=== PATIENT | female | born 1995 | race Caucasian/White ===

== ENCOUNTER 2018-07-20 21:02 | Emergency (ER) | payer SELFPAY ==
--- OUTSIDE RECORDS SUMMARY | 2018-07-20 21:04 | XMS REPORT | Clinical Summary ---
:1995 Author Organization [facility] Address [address] [place] [address] Care Team Providers Name Role Phone Asked, No Pcp Primary Care Provider Unavailable Allergies Active Allergy Reactions Severity Noted Date Comments Hydrogen Peroxide Other (See Comments) 08/20/2017 Medications Medication Sig Dispensed Refills Start Date End Date Status ibuprofen Take 800 mg by 0 Active (ADVIL,MOTRIN) 200 MG mouth daily. tablet clindamycin (CLEOCIN) Take 1 capsule 21 capsule 0 08/20/2017 08/27/2017 300 MG capsule (300 mg total) by mouth 3 (three) times a day for 7 days. chlorhexidine Apply 15 mL to 900 mL 0 08/20/2017 09/19/2017 (PERIDEX) 0.12 % the mouth or solution throat 2 (two) times a day for 30 days. acetaminophen-codeine Take 1-2 10 tablet 0 08/20/2017 08/25/2017 (TYLENOL WITH CODEINE tablets by #3) 300-30 mg per mouth every 6 tablet (six) hours as needed for moderate pain for up to 5 days. etodolac (LODINE) 500 Take 1 tablet 20 tablet 0 08/20/2017 08/30/2017 MG tablet (500 mg total) by mouth 2 (two) times a day as needed (pain) for up to 10 days. ondansetron ODT Take 1 tablet 6 tablet 0 08/20/2017 09/19/2017 (ZOFRAN ODT) 4 MG (4 mg total) by disintegrating tablet mouth every 8 (eight) hours as needed for nausea or vomiting for up to 30 days. Active Problems Not on file Encounters Date Type Specialty Care Team Description 08/20/2017 Emergency Emergency Medicine Bryan Lester Dental infection ( Primary Dx); DO Maxime Dental abscess after 07/19/2017 Social History Tobacco Use Types Packs/Day Years Used Date Current Every Day Smoker Cigarettes 1 Smokeless Tobacco: Never Used Alcohol Use Drinks/Week oz/Week Comments Yes once every 2 months Sex Assigned at Date Recorded Not on file Job Start Date Occupation Industry Not on file Not on file Not on file Travel History Travel Start Travel End No recent travel history available. Last Filed Vital Signs Vital Sign Reading Time Taken Blood Pressure 125/59 08/20/2017 10:24 PM CDT Pulse 89 08/20/2017 10:24 PM CDT Temperature 37.2 C (98.9 F) 08/20/2017 10:24 PM CDT Respiratory Rate 18 08/20/2017 10:24 PM CDT Oxygen Saturation 97% 08/20/2017 10:24 PM CDT Inhaled Oxygen Concentration - - Weight 81.6 kg (180 lb) 08/20/2017 8:10 PM CDT Height 176.5 cm (5' 9.5") 08/20/2017 8:10 PM CDT Body Mass Index 26.2 08/20/2017 8:10 PM CDT Plan of Treatment Not on file Results Not on fileafter 07/19/2017 Advance Directives Patient has advance care planning documents on file. For more information, please contact:Sanjeev Moe[address] [place] [address]
[2018-07-20] MEDS ORDERED: AZITHROMYCIN 1 GM PACKET ONE (22:40)
[2018-07-20] MEDS ORDERED: DOXYCYCLINE 100 MG CAP PO ONE (22:40)
[2018-07-20] MEDS ORDERED: CEFTRIAXONE 250 MG/VIAL ONE (22:40)
[2018-07-20] MEDS ORDERED: WATER FOR INJ,STERILE 10 ML ONE (22:41)
--- NOTE | 2018-07-20 22:47 | EDPHYS ---
Physician Documentation [facility] Name: Tana Robertson Age: 22 yrs Sex: Female : 1995 Arrival Date: 07/20/2018 Time: 21:05 Bed 19 Private MD: ED Physician Tyler Garcia HPI: 07/20 21:35 This 22 yrs old Female presents to ER via Ambulatory with complaints of jr8 Vaginal Pain. 21:35 Onset: The symptoms/episode began/occurred acutely, yesterday. Modifying factors: The jr8 symptoms are alleviated by nothing, the symptoms are aggravated by nothing. Associated signs and symptoms: The patient has no apparent associated signs or symptoms. Severity of symptoms: At their worst the symptoms were moderate, in the emergency department the symptoms are unchanged. It is unknown whether or not the patient has had similar symptoms in the past. The patient has not recently seen a physician. Patient stated that she has history of herpes. Just finished menstrual cycle and started to have vaginal pain. Started her viral medication but not getting better. Stated that she looked down there with mirror and saw red area with discharge . 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 - Social history:: Smoking status: Patient uses tobacco products, smokes one pack cigarettes per day. - Ebola Screening: : Patient denies travel to an Ebola-affected area in the 21 days before illness onset. ROS: 21:57 Eyes: Negative for injury, pain, redness, and discharge, ENT: Negative for injury, jr8 pain, and discharge, Neck: Negative for injury, pain, and swelling, Cardiovascular: Negative for chest pain, palpitations, and edema, Respiratory: Negative for shortness of breath, cough, wheezing, and pleuritic chest pain, Abdomen/GI: Negative for abdominal pain, nausea, vomiting, diarrhea, and constipation, Back: Negative for injury and pain, MS/Extremity: Negative for injury and deformity, Skin: Negative for injury, rash, and discoloration, Neuro: Negative for headache, weakness, numbness, tingling, and seizure. 21:57 : Positive for Vaginal pain with lesions. Exam: 22:39 Eyes: Pupils equal round and reactive to light, extra-ocular motions intact. Lids and jr8 lashes normal. Conjunctiva and sclera are non-icteric and not injected. Cornea within normal limits. Periorbital areas with no swelling, redness, or edema. ENT: Nares patent. No nasal discharge, no septal abnormalities noted. Tympanic membranes are normal and external auditory canals are clear. Oropharynx with no redness, swelling, or masses, exudates, or evidence of obstruction, uvula midline. Mucous membranes moist. Neck: Trachea midline, no thyromegaly or masses palpated, and no cervical lymphadenopathy. Supple, full range of motion without nuchal rigidity, or vertebral point tenderness. No Meningismus. Cardiovascular: Regular rate and rhythm with a normal S1 and S2. No gallops, murmurs, or rubs. Normal PMI, no JVD. No pulse deficits. Respiratory: Lungs have equal breath sounds bilaterally, clear to auscultation and percussion. No rales, rhonchi or wheezes noted. No increased work of breathing, no retractions or nasal flaring. Abdomen/GI: Soft, non-tender, with normal bowel sounds. No distension or tympany. No guarding or rebound. No evidence of tenderness throughout. Back: No spinal tenderness. No costovertebral tenderness. Full range of motion. Skin: Warm, dry with normal turgor. Normal color with no rashes, no lesions, and no evidence of cellulitis. MS/ Extremity: Pulses equal, no cyanosis. Neurovascular intact. Full, normal range of motion. Neuro: Awake and alert, GCS 15, oriented to person, place, time, and situation. Cranial nerves II-XII grossly intact. Motor strength 5/5 in all extremities. Sensory grossly intact. Cerebellar exam normal. Normal gait. 22:39 : Pelvic Exam: External exam: no appreciated Bartholin's cyst, no erythema, not excoriated, no evidence of foreign body, no lesions, no ulcerations, no warts seen, Speculum exam: no cervicitis, os that is closed, discharge, white, the nurse was present for the exam, Cyst/Abscess noted to vaginal opening 12 o'clock position with purulent drainage . Vital Signs: 21:12 BP 135 / 89; Pulse 103; Resp 18; Temp 98.2; Pulse Ox 99% ; Height 5 ft. 9 in. (175.26 aj1 cm) (R); Pain 3/10; 22:15 BP 129 / 86; Pulse 91; Resp 17; Pulse Ox 100% on R/A; Pain 3/10; ed1 MDM: 21:15 Patient medically screened. jr8 22:41 Data reviewed: vital signs, nurses notes, lab test result(s). Data interpreted: Pulse jr8 oximetry: on room air is 99 %. Interpretation: normal. Counseling: I had a detailed discussion with the patient and/or guardian regarding: the historical points, exam findings, and any diagnostic results supporting the discharge/admit diagnosis, lab results, the need for outpatient follow up, an OB/Gyne specialist, to return to the emergency department if symptoms worsen or persist or if there are any questions or concerns that arise at home. ED course: Discussed with patient that because it is draining now and where the abscess/cyst is. Would be better suited to be seen by gynecologic surgeon. Will start on antibiotics for now. If worse to come back . 07/20 22:21 Order name: GC (GONORR/CHLAMYDIA) Probe ed1 07/20 22:21 Order name: Wet Prep; Complete Time: 22:43 ed1 07/20 22:22 Order name: Wound Culture ed1 07/20 21:25 Order name: Pelvic Exam Setup; Complete Time: 21:25 jr8 Administered Medications: 22:38 Drug: Doxycycline 100 mg Route: PO; ed1 22:57 Follow up: Response: No adverse reaction ed1 22:39 Drug: Rocephin (cefTRIAXone) 250 mg Route: IM; Site: right ventrogluteal; ed1 22:57 Follow up: Response: No adverse reaction ed1 22:39 Drug: Zithromax 1 grams Route: PO; ed1 22:58 Follow up: Response: No adverse reaction ed1 22:58 Drug: Flagyl 2 grams Route: PO; ed1 22:58 Follow up: Response: Medication administered at discharge. ed1 Disposition: 07/20/18 22:46 Discharged to Home. Impression: Trichomoniasis, Vaginal Abscess . - Condition is Stable. - Discharge Instructions: Trichomoniasis, Percutaneous Abscess Drain. - Prescriptions for Doxycycline Monohydrate 100 mg Oral Tablet - take 1 tablet by ORAL route every 12 hours for 14 days; 28 tablet. - Medication Reconciliation Form, Thank You Letter, Antibiotic Education, Prescription Opioid Use form. - Follow up: Private Physician; When: 2 - 3 days; Reason: Recheck today's complaints, Continuance of care, Re-evaluation by your physician. - Problem is new. - Symptoms have improved. Addendum: 07/23/2018 11:13 Co-signature as Attending Physician, Tyler Garcia MD I agree with the assessment and c cuevas plan of care. Signatures: Dispatcher [employer] EDMS Madison Alvarez RN RN aj1 Tyler Garcia MD MD cha Riggs, Erika, RN RN ed1 Keron Tan PA PA jr8 Corrections: (The following items were deleted from the chart) 07/20 23:28 22:46 07/20/2018 22:46 Discharged to Home. Impression: Trichomoniasis; Vaginal Abscess ed1 . Condition is Stable. Forms are Medication Reconciliation Form, Thank You Letter, Antibiotic Education, Prescription Opioid Use. Follow up: Private Physician; When: 2 - 3 days; Reason: Recheck today's complaints, Continuance of care, Re-evaluation by your physician. Problem is new. Symptoms have improved. jr8
--- NOTE | 2018-07-20 22:47 | ER ---
Nurse's Notes [facility] Name: Tana Robertson Age: 22 yrs Sex: Female : 1995 Arrival Date: 07/20/2018 Time: 21:05 Bed 19 Private MD: Diagnosis: Trichomoniasis;Vaginal Abscess Presentation: 07/20 21:09 Presenting complaint: Patient states: "My period ended a couple days ago and then I aj1 started having tenderness down there. I do have herpes so I thought I was having an outbreak so I started taking my meds. Today I looked down there with a mirror and it doesn't look like any of my previous outbreaks I noticed like a big swollen red area and it popped and all of this green and white pus came out, then I noticed a bunch of other red bumps". Transition of care: patient was not received from another setting of care. Onset of symptoms was July 20, 2018. Risk Assessment: Do you want to hurt yourself or someone else? Patient reports no desire to harm self or others. Initial Sepsis Screen: Does the patient meet any 2 criteria? No. Patient's initial sepsis screen is negative. Does the patient have a suspected source of infection? No. Patient's initial sepsis screen is negative. Care prior to arrival: None. 21:09 Method Of Arrival: Ambulatory aj1 21:09 Acuity: BEL 3 aj1 Triage Assessment: 21:12 General: Appears in no apparent distress. Behavior is calm, cooperative, appropriate aj1 for age. Pain: Complains of pain in pelvis Pain currently is 3 out of 10 on a pain scale. Neuro: Level of Consciousness is awake, alert, obeys commands. Cardiovascular: Patient's skin is warm and dry. Respiratory: Airway is patent Respiratory effort is even, unlabored, Respiratory pattern is regular, symmetrical. 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 - Social history:: Smoking status: Patient uses tobacco products, smokes one pack cigarettes per day. - Ebola Screening: : Patient denies travel to an Ebola-affected area in the 21 days before illness onset. Screenin:12 Abuse screen: Denies threats or abuse. Denies injuries from another. Nutritional ed1 screening: No deficits noted. Tuberculosis screening: No symptoms or risk factors identified. Fall Risk None identified. Assessment: 21:12 General: Appears in no apparent distress. Behavior is calm, cooperative. Pain: ed1 Complains of pain in vaginal opening Pain currently is 3 out of 10 on a pain scale. Quality of pain is described as aching, Pain began 1 day ago. Neuro: Level of Consciousness is awake, alert, obeys commands, Oriented to person, place, time, situation. Cardiovascular: Denies chest pain, Heart tones S1 S2 present. Respiratory: Airway is patent Respiratory effort is even, unlabored, Respiratory pattern is regular, symmetrical, Breath sounds are clear bilaterally. GI: Abdomen is non-distended, Bowel sounds present X 4 quads. Abd is soft and non tender X 4 quads. Patient currently denies diarrhea, nausea, vomiting. : Reports discharge, from vagina that is malodorous, white, vaginal itching. EENT: No signs and/or symptoms were reported regarding the EENT system. Derm: Skin is intact, is healthy with good turgor, Skin is dry, Skin is normal, Skin temperature is warm. Musculoskeletal: Circulation, motion, and sensation intact. Range of motion: intact in all extremities. 22:15 Reassessment: Patient appears in no apparent distress at this time. No changes from ed1 previously documented assessment. Patient and/or family updated on plan of care and expected duration. Pain level reassessed. Patient is alert/active/playful, equal unlabored respirations, skin warm/dry/pink. Patient states symptoms have not improved. Vital Signs: 21:12 BP 135 / 89; Pulse 103; Resp 18; Temp 98.2; Pulse Ox 99% ; Height 5 ft. 9 in. (175.26 aj1 cm) (R); Pain 3/10; 22:15 BP 129 / 86; Pulse 91; Resp 17; Pulse Ox 100% on R/A; Pain 3/10; ed1 ED Course: 21:05 Patient arrived in ED. mr 21:11 Triage completed. aj1 21:12 Arm band placed on Patient placed in an exam room. aj1 21:12 Patient has correct armband on for positive identification. Placed in gown. Bed in low ed1 position. Call light in reach. Side rails up X 1. Adult w/ patient. Pulse ox on. NIBP on. Warm blanket given. 21:15 Keron Tan PA is PHCP. jr8 21:15 Tyler Garcia MD is Attending Physician. jr8 21:17 Glo Guido, RN is Primary Nurse. ed1 22:20 Assist provider with pelvic exam: Set up pelvic tray. Performed by Keron SINGER ed1 Specimens sent to lab. Patient tolerated well. 22:59 Patient did not have IV access during this emergency room visit. ed1 Administered Medications: 22:38 Drug: Doxycycline 100 mg Route: PO; ed1 22:57 Follow up: Response: No adverse reaction ed1 22:39 Drug: Rocephin (cefTRIAXone) 250 mg Route: IM; Site: right ventrogluteal; ed1 22:57 Follow up: Response: No adverse reaction ed1 22:39 Drug: Zithromax 1 grams Route: PO; ed1 22:58 Follow up: Response: No adverse reaction ed1 22:58 Drug: Flagyl 2 grams Route: PO; ed1 22:58 Follow up: Response: Medication administered at discharge. ed1 Outcome: 22:46 Discharge ordered by . jr8 22:59 Discharged to home ambulatory, with family. ed1 22:59 Condition: good 22:59 Discharge instructions given to patient, Instructed on discharge instructions, follow up and referral plans. medication usage, Demonstrated understanding of instructions, follow-up care, medications, Prescriptions given X 1. 23:28 Patient left the ED. ed1 Signatures: Madison Alvarez, RN RN aj1 Desiree Crowder mr Glo Guido, RN RN ed1 Keron Tan PA PA jrTrudy
[2018-07-20] MEDS ORDERED: metroNIDAZOLE 500 MG TABLET ONE (23:01)
[2018-07-24 06:42] LABS: C.trachomatis RNA,TMA Not Detected (Not Detected)
== END 2018-07-20 23:28 | disposition home or self-care (01) ==
LOC: ER 21:02
DX: A59.9 Trichomoniasis, unspecified (principal); N76.0 Acute vaginitis; F17.210 Nicotine dependence, cigarettes, uncomplicated; Z88.8 Allergy status to other drugs, medicaments and biological substances
CPT/HCPCS: 87070; 87205; 87210; 87490; 87590; 96372; 99284; J0696

== ENCOUNTER 2018-10-14 15:35 | Emergency (ER) | payer SELFPAY ==
--- OUTSIDE RECORDS SUMMARY | 2018-10-14 15:56 | XMS REPORT | Clinical Summary ---
:1995 Author Organization [facility] Address [address] [place] [address] Care Team Providers Name Role Phone Asked, No Pcp Primary Care Provider Unavailable Allergies Active Allergy Reactions Severity Noted Date Comments Hydrogen Peroxide Other (See Comments) 08/20/2017 Medications Medication Sig Dispensed Refills Start Date End Date Status ibuprofen Take 800 mg by 0 Active (ADVIL,MOTRIN) 200 MG mouth daily. tablet Active Problems Not on file Social History Tobacco Use Types Packs/Day Years [...] travel history available. Last Filed Vital Signs Not on file Plan of Treatment Not on file Results Not on fileafter 10/13/2017 Advance Directives Patient has advance care planning documents on file. For more information, please contact:[facility] [place] [address]
[2018-10-14] MEDS ORDERED: LIDOCAINE 1% 20 ML MDV ONE (16:35)
[2018-10-14] MEDS ORDERED: CLINDAMYCIN IV 150 MG/ML (4 mL) VIAL ONE (17:27)
[2018-10-14] MEDS ORDERED: SMZ./TMP. 800/160 MG TABLET ONE (17:27)
--- NOTE | 2018-10-14 17:54 | EDPHYS ---
Physician Documentation [facility] Name: Tana Robertson Age: 22 yrs Sex: Female : 1995 Arrival Date: 10/14/2018 Time: 15:37 Bed 15 Private MD: ED Physician Tyler Garcia HPI: 10/14 16:59 This 22 yrs old Female presents to ER via Ambulatory with complaints of Skin jr8 Sore(s). 16:59 The patient presents with an abscess of the left axilla, The patient presents with jr8 cellulitis of the left arm. Description: The affected area is moderate sized, erythematous, swollen, tense, warm. Onset: The symptoms/episode began/occurred gradually, 2 day(s) ago. Possible cause(s): unknown. Associated signs and symptoms: The patient has no apparent associated signs or symptoms. Modifying factors: the symptoms are alleviated by nothing, the symptoms are aggravated by pressure, sitting, squeezing the lesion and expressing the contents, touching. Severity of symptoms: At their worst the symptoms were moderate, in the emergency department the symptoms are unchanged. The patient has not experienced similar symptoms in the past. The patient has not recently seen a physician. 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 - Social history:: Smoking status: Patient uses tobacco products, smokes one pack cigarettes per day. - Ebola Screening: : No symptoms or risks identified at this time. ROS: 16:59 Eyes: Negative for injury, pain, redness, and discharge, ENT: Negative for injury, jr8 pain, and discharge, Neck: Negative for injury, pain, and swelling, Cardiovascular: Negative for chest pain, palpitations, and edema, Respiratory: Negative for shortness of breath, cough, wheezing, and pleuritic chest pain, Abdomen/GI: Negative for abdominal pain, nausea, vomiting, diarrhea, and constipation, Back: Negative for injury and pain, MS/Extremity: Negative for injury and deformity, Neuro: Negative for headache, weakness, numbness, tingling, and seizure. 16:59 Skin: Positive for abscess, cellulitis, erythema. Exam: 16:59 Eyes: Pupils equal round and reactive to light, extra-ocular motions intact. Lids and jr8 lashes normal. Conjunctiva and sclera are non-icteric and not injected. Cornea within normal limits. Periorbital areas with no swelling, redness, or edema. ENT: Nares patent. No nasal discharge, no septal abnormalities noted. Tympanic membranes are normal and external auditory canals are clear. Oropharynx with no redness, swelling, or masses, exudates, or evidence of obstruction, uvula midline. Mucous membranes moist. Neck: Trachea midline, no thyromegaly or masses palpated, and no cervical lymphadenopathy. Supple, full range of motion without nuchal rigidity, or vertebral point tenderness. No Meningismus. Cardiovascular: Regular rate and rhythm with a normal S1 and S2. No gallops, murmurs, or rubs. Normal PMI, no JVD. No pulse deficits. Respiratory: Lungs have equal breath sounds bilaterally, clear to auscultation and percussion. No rales, rhonchi or wheezes noted. No increased work of breathing, no retractions or nasal flaring. Abdomen/GI: Soft, non-tender, with normal bowel sounds. No distension or tympany. No guarding or rebound. No evidence of tenderness throughout. Back: No spinal tenderness. No costovertebral tenderness. Full range of motion. MS/ Extremity: Pulses equal, no cyanosis. Neurovascular intact. Full, normal range of motion. Neuro: Awake and alert, GCS 15, oriented to person, place, time, and situation. Cranial nerves II-XII grossly intact. Motor strength 5/5 in all extremities. Sensory grossly intact. Cerebellar exam normal. Normal gait. 16:59 Chest/axilla: Axilla: abscess, that is moderate in size, of the left axilla, that is approximately 4 cm(s), with pointing, with tenderness. 16:59 Skin: 4 cm by 4 cm well demarcated area of redness with induration noted to left biceps region noted without induration . Vital Signs: 15:42 BP 126 / 69; Pulse 96; Resp 16 S; Temp 98.3(O); Pulse Ox 100% on R/A; Weight 96.16 kg; hj Height 5 ft. 10 in. (177.80 cm); Pain 5/10; 16:57 BP 125 / 66; Pulse 90; Resp 18; Pulse Ox 100% on R/A; hj 17:27 BP 122 / 68; Pulse 92; Resp 18; Pulse Ox 99% on R/A; hj 15:42 Body Mass Index 30.42 (96.16 kg, 177.80 cm) Procedures: 16:59 I \T\ D: Incision and drainage was performed for an abscess of the left axilla. Prepped jr8 with Betadine, Anesthetized with 3 ml's 1% Lidocaine. Incised with #11 blade. Drained moderate amount purulent fluid. bloody fluid. Loculations removed. Cultures obtained. Abscess cavity explored. Packed with iodoform gauze, Dressing: sterile 4x4 gauze, the patient tolerated the procedure well. MDM: 15:47 Patient medically screened. [facility] 17:04 Data reviewed: vital signs, nurses notes, and as a result, I will discharge patient. [facility] Data interpreted: Pulse oximetry: on room air is 100 %. Interpretation: normal. Counseling: I had a detailed discussion with the patient and/or guardian regarding: the historical points, exam findings, and any diagnostic results supporting the discharge/admit diagnosis, the need for outpatient follow up, a family practitioner, to return to the emergency department if symptoms worsen or persist or if there are any questions or concerns that arise at home. Administered Medications: 16:32 Drug: Lidocaine (1 %) 5 mg Route: Infiltration; 17:29 Follow up: Response: No adverse reaction 17:06 Drug: Clindamycin 600 mg Route: IM; Site: right gluteus; 17:28 Follow up: Response: No adverse reaction 17:06 Drug: Bactrim (160 mg-800 mg (DS) 1 tablet Route: PO; hj 17:28 Follow up: Response: No adverse reaction Disposition: 10/15 10:09 Co-signature as Attending Physician, Tyler Garcia MD I agree with the assessment and jayshree plan of care. Disposition: 10/14/18 17:05 Discharged to Home. Impression: Cutaneous abscess of left axilla, Cellulitis of left upper limb. - Condition is Stable. - Discharge Instructions: Skin Abscess, Cellulitis, Adult, Incision and Drainage. - Prescriptions for Clindamycin HCl 300 mg Oral Capsule - take 1 capsule by ORAL route every 6 hours for 10 days; 40 capsule. Ibuprofen 800 mg Oral Tablet - take 1 tablet by ORAL route every 12 hours As needed take with food; 20 tablet. Bactrim DS 800- 160 mg Oral Tablet - take 1 tablet by ORAL route every 12 hours for 10 days; 20 tablet. - Medication Reconciliation Form, Thank You Letter, Antibiotic Education, Prescription Opioid Use form. - Follow up: Private Physician; When: 48 Hours; Reason: Wound Recheck, Recheck today's complaints, Continuance of care, Re-evaluation by your physician. - Problem is new. - Symptoms have improved. Signatures: Tyler Garcia MD MD cha Calderon, Audri, RN RN aa5 Keron Tan PA PA jr8 Eliel Moreno RN RN Corrections: (The following items were deleted from the chart) 10/14 15:42 15:42 Immunization history: Adult Immunizations up to date, 5 aa5 15:42 15:42 Immunization history: Last tetanus immunization: unknown, aa5 aa5 17:29 17:05 10/14/2018 17:05 Discharged to Home. Impression: Cutaneous abscess of left hj axilla; Cellulitis of left upper limb. Condition is Stable. Forms are Medication Reconciliation Form, Thank You Letter, Antibiotic Education, Prescription Opioid Use. Follow up: Private Physician; When: 48 Hours; Reason: Wound Recheck, Recheck today's complaints, Continuance of care, Re-evaluation by your physician. Problem is new. Symptoms have improved. jr8
--- NOTE | 2018-10-14 17:54 | ER ---
Nurse's Notes [facility] Name: Tana Robertson Age: 22 yrs Sex: Female : 1995 Arrival Date: 10/14/2018 Time: 15:37 Bed 15 Private MD: Diagnosis: Cutaneous abscess of left axilla;Cellulitis of left upper limb Presentation: 10/14 15:40 Presenting complaint: Patient states: "[place] to the beach and the day after I started aa5 getting this sores on my left arm". Red area noted to left upper arm and abscess noted to left axillae. Transition of care: patient was not received from another setting of care. Onset of symptoms was September 2018. Risk Assessment: Do you want to hurt yourself or someone else? Patient reports no desire to harm self or others. Initial Sepsis Screen: Does the patient meet any 2 criteria? No. Patient's initial sepsis screen is negative. Does the patient have a suspected source of infection? No. Patient's initial sepsis screen is negative. Care prior to arrival: None. 15:40 Acuity: BEL 4 aa5 15:40 Method Of Arrival: Ambulatory aa5 Triage Assessment: 15:47 General: Appears in no apparent distress. uncomfortable, Behavior is calm, cooperative, hj appropriate for age. Pain: Denies pain. 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 - Social history:: Smoking status: Patient uses tobacco products, smokes one pack cigarettes per day. - Ebola Screening: : No symptoms or risks identified at this time. Screenin:46 Abuse screen: Denies threats or abuse. Denies injuries from another. Nutritional hj screening: No deficits noted. Tuberculosis screening: No symptoms or risk factors identified. Fall Risk None identified. Assessment: 15:46 General: Appears in no apparent distress. uncomfortable, Behavior is calm, cooperative, hj appropriate for age. Pain: Complains of pain in L axilla. Neuro: Level of Consciousness is awake, alert, obeys commands, Oriented to person, place, time, situation, Appropriate for age. Cardiovascular: Capillary refill < 3 seconds Patient's skin is warm and dry. Respiratory: Airway is patent Respiratory effort is even, unlabored, Respiratory pattern is regular, symmetrical. GI: No signs and/or symptoms were reported involving the gastrointestinal system. : No signs and/or symptoms were reported regarding the genitourinary system. EENT: No signs and/or symptoms were reported regarding the EENT system. Derm: Reports rash on L upper arm. Musculoskeletal: Reports LN in L axilla. 16:32 Reassessment: Patient and/or family updated on plan of care and expected duration. Pain hj level reassessed. Patient is alert, oriented x 3, equal unlabored respirations, skin warm/dry/pink. provider in room for I\\T\\D;. Vital Signs: 15:42 BP 126 / 69; Pulse 96; Resp 16 S; Temp 98.3(O); Pulse Ox 100% on R/A; Weight 96.16 kg; hj Height 5 ft. 10 in. (177.80 cm); Pain 5/10; 16:57 BP 125 / 66; Pulse 90; Resp 18; Pulse Ox 100% on R/A; hj 17:27 BP 122 / 68; Pulse 92; Resp 18; Pulse Ox 99% on R/A; hj 15:42 Body Mass Index 30.42 (96.16 kg, 177.80 cm) ED Course: 15:37 Patient arrived in ED. mr 15:40 Arm band placed on. aa5 15:41 Triage completed. aa5 15:41 Eliel Moreno RN is Primary Nurse. hj 15:47 Keron Tan PA is PHCP. jr8 15:47 Tyler Garcia MD is Attending Physician. jr8 15:47 Patient has correct armband on for positive identification. Bed in low position. Call hj light in reach. Side rails up X 1. Adult w/ patient. 17:27 No provider procedures requiring assistance completed. Patient did not have IV access hj during this emergency room visit. Administered Medications: 16:32 Drug: Lidocaine (1 %) 5 mg Route: Infiltration; hj 17:29 Follow up: Response: No adverse reaction hj 17:06 Drug: Clindamycin 600 mg Route: IM; Site: right gluteus; hj 17:28 Follow up: Response: No adverse reaction 17:06 Drug: Bactrim (160 mg-800 mg (DS) 1 tablet Route: PO; hj 17:28 Follow up: Response: No adverse reaction Outcome: 17:05 Discharge ordered by MD. perez 17:27 Discharged to home ambulatory. hj 17:27 Condition: stable 17:27 Discharge instructions given to patient, Instructed on discharge instructions, follow up and referral plans. medication usage, Demonstrated understanding of instructions, follow-up care, medications, Prescriptions given X 3. 17:29 Patient left the ED. Signatures: Desiree Crowder mr WestonEle, RN RN aa5 Keron Tan PA PA jr8 Eliel Moreno RN RN hj Corrections: (The following items were deleted from the chart) 15:42 15:42 Immunization history: Adult Immunizations up to date, aa5 aa5 15:42 15:42 Immunization history: Last tetanus immunization: unknown, aa5 aa5 15:43 15:42 BP 126 / 69; aa5 aa5 15:45 15:42 BP 126 / 69; Pulse 96bpm; Resp 16bpm; Spontaneous; Pulse Ox 100% RA; Temp 98.3F hj Oral; Pain 5/10; aa5
== END 2018-10-14 17:29 | disposition home or self-care (01) ==
LOC: ER 15:35
PROC: 0J9F0ZZ Drainage of Left Upper Arm Subcutaneous Tissue and Fascia, Open Approach (ICD-10-PCS; principal; 2018-10-14)
DX: L03.112 Cellulitis of left axilla (principal); F17.210 Nicotine dependence, cigarettes, uncomplicated; Z88.8 Allergy status to other drugs, medicaments and biological substances
CPT/HCPCS: 96372; 99283; S0077

== ENCOUNTER 2019-05-31 18:07 | Emergency (ER) | payer SELFPAY ==
[2019-05-31] MEDS ORDERED: NA CHLORIDE 0.9% 1,000 ML ONE (19:28)
[2019-05-31] MEDS ORDERED: MORPHINE 2 MG/ML SYR ONE (19:28)
[2019-05-31] MEDS ORDERED: ONDANSETRON 4 MG/2 ML VIAL ONE (19:28)
[2019-05-31 19:29] LABS: Absolute Lymphocytes (CBC) 1.5 K/uL (0.7-4.9); Basophils % 0.6 % (0-1.3); Hematocrit 40.2 % (36.0-45.0); Lymphocytes % 24.2 % (15.3-44.8); MPV 9.3 fL (7.6-11.3); RBC Red Blood Cell Count 4.42 M/uL (3.86-4.86)
[2019-05-31 19:50] LABS: Protime INR 1.19
[2019-05-31 19:57] LABS: BUN Blood Urea Nitrogen 6 mg/dL (7-18); Bicarbonate 27 mmol/L (21-32); Glucose Level 100 mg/dL (74-106); Potassium 3.3 mmol/L (3.5-5.1); Sodium Level 137 mmol/L (136-145)
[2019-05-31 20:12] LABS: Urine Blood 1+ (NEG); Urine Glucose NEGATIVE (NEG); Urine Protein TRACE (NEG); Urine Specific Gravity >1.030 (1.005-1.030)
[2019-05-31] MEDS ORDERED: CLINDAMYCIN 900MG/D5W 900 MG/50 ML IVPB IV ONE (20:22)
--- NOTE | 2019-05-31 20:22 | RAD REPORT ---
EXAM DESCRIPTION: CT - Soft Tissue Neck W/Contr CLINICAL HISTORY: right lower jaw swelling Pain and swelling. COMPARISON: No comparisons TECHNIQUE All CT scans are performed using dose optimization technique as appropriate and may includ e automated exposure control or mA/KV adjustment according to patient size. FINDINGS: Moderate perimandibular inflammatory changes are present along the right aspect of the man dible. [place] fluid collection measuring 19 x 5 mm is present adjacent to the right mandibular ramus likely representing odontogenic abscess. The first and second right mandibular molars demonstrate 5 m m periapical abscesses as well as large dental ami. Inflammatory changes extend into the right submandibular region with enlarged right submandibular lym ph nodes present. Mild fluid is seen extending into the right floor of the mouth. No intrinsic neck mass is seen. Thyroid gland is normal size. Mild left frontoethmoidal sinus thicken ing. IMPRESSION: Right perimandibular inflammatory changes are present along with a 19 x 5 mm odontogenic abscess. Several enlarged right submandibular lymph nodes are seen with inflammatory fluid extending to the floor of the mouth on the right.
[2019-05-31] MEDS ORDERED: NICOTINE 14 MG/PAT TD ONE (21:12)
--- NOTE | 2019-05-31 21:35 | ER ---
Nurse's Notes [facility] Name: Tana Robertson Age: 23 yrs Sex: Female : 1995 Arrival Date: 05/31/2019 Time: 18:14 Bed 8 Private MD: Diagnosis: Dental caries;Periapical abscess without sinus-right lower jaw;Right lower jaw odotogenic abscess Presentation: 05/31 18:25 Presenting complaint: Patient states: She has 2 bad teeth on the right side and today aj1 she started having pain and swelling to the right jaw. Transition of care: patient was not received from another setting of care. Onset of symptoms was May 31, 2019. Risk Assessment: Do you want to hurt yourself or someone else? Patient reports no desire to harm self or others. Initial Sepsis Screen: Does the patient meet any 2 criteria? No. Patient's initial sepsis screen is negative. Does the patient have a suspected source of infection? Yes: Other: dental carries. Care prior to arrival: None. 18:25 Method Of Arrival: Ambulatory aj 18:25 Acuity: BEL 3 aj1 Triage Assessment: 18:26 General: Appears in no apparent distress. uncomfortable, Behavior is calm, cooperative, aj1 appropriate for age. Pain: Pain currently is 3 out of 10 on a pain scale. Neuro: Level of Consciousness is awake, alert, obeys commands. Cardiovascular: Patient's skin is warm and dry. Respiratory: Airway is patent Respiratory effort is even, unlabored, Respiratory pattern is regular, symmetrical. 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 - Coronavirus screen:: The patient has NOT traveled to [place], [place], or [place] in the past 14 days. - Social history:: Smoking status: Patient reports the use of cigarette tobacco products, smokes one-half pack cigarettes per day. - Ebola Screening: : Patient denies travel to an Ebola-affected area in the 21 days before illness onset. Screenin:48 Abuse screen: Denies threats or abuse. Nutritional screening: No deficits noted. tw2 Tuberculosis screening: No symptoms or risk factors identified. Fall Risk None identified. Assessment: 19:10 General: Appears in no apparent distress. comfortable, Behavior is calm, cooperative, aa1 appropriate for age. Pain: Complains of pain in face and mouth Pain began suddenly, 1 day ago. Is continuous. Neuro: Level of Consciousness is awake, alert, obeys commands, Oriented to person, place, time, situation, Moves all extremities. Full function Speech is normal. Respiratory: Airway is patent Respiratory effort is even, unlabored, Respiratory pattern is regular, symmetrical. GI: No signs and/or symptoms were reported involving the gastrointestinal system. : No signs and/or symptoms were reported regarding the genitourinary system. EENT: Poor dentition noted. multiple broken or missing teeth. Derm: Skin is intact, is healthy with good turgor, Skin is pink, warm \T\ dry. Musculoskeletal: Capillary refill < 3 seconds, Swelling present in right cheek and right jaw. 20:15 Reassessment: Patient appears in no apparent distress at this time. Patient and/or aa1 family updated on plan of care and expected duration. Pain level reassessed. Patient is alert, oriented x 3, equal unlabored respirations, skin warm/dry/pink. Awaiting CT results. 21:10 Reassessment: Patient appears in no apparent distress at this time. Patient and/or aa1 family updated on plan of care and expected duration. Pain level reassessed. Patient is alert, oriented x 3, equal unlabored respirations, skin warm/dry/pink. Pt requesting nicotine patch; provider notified. 21:38 Reassessment: Report given to Carmella Burton RN at [facility]. aa1 22:03 Reassessment: Patient appears in no apparent distress at this time. Patient is alert, aa1 oriented x 3, equal unlabored respirations, skin warm/dry/pink. EMS present for transfer to [facility] Patient states feeling better. Vital Signs: 18:26 BP 118 / 85; Pulse 99; Resp 18; Temp 98.5; Pulse Ox 98% on R/A; Height 5 ft. 9 in. aj1 (175.26 cm) (R); Pain 3/10; 19:30 BP 106 / 70; Pulse 92; Resp 18; Pulse Ox 100% on R/A; aa1 20:30 BP 109 / 83; Pulse 92; Resp 16; Temp 98.7; Pulse Ox 98% on R/A; Pain 0/10; aa1 21:39 BP 117 / 81; Pulse 86; Resp 18; Temp 98.6; Pulse Ox 100% on R/A; Pain 0/10; aa1 ED Course: 18:14 Patient arrived in ED. as 18:25 Triage completed. aj1 18:26 Arm band placed on Patient placed in an exam room. aj1 18:27 Bed in low position. Call light in reach. tw2 18:38 Tyler Villagran PA is PHCP. cp 18:38 Maxime Wisdom MD is Attending Physician. cp 18:57 Radiology exam delayed due to lab results not completed at this time. (BUN/Creatinine). ag6 19:12 Tyler Garcia MD is Attending Physician. cp 19:20 Warm blanket given. aa1 19:20 Initial lab(s) drawn, by me, sent to lab. Inserted saline lock: 20 gauge in right aa1 antecubital area, using aseptic technique. Blood collected. 19:36 Theresa Goodwin, RN is Primary Nurse. aa1 20:10 CT Soft Tissue Neck W/contr In Process Unspecified. EDMS 22:03 No provider procedures requiring assistance completed. Patient transferred, IV remains aa1 in place. Administered Medications: 19:25 Drug: NS 0.9% 1000 ml Route: IV; Rate: 1 bolus; Site: right antecubital; aa1 20:25 Follow up: IV Status: Completed infusion; IV Intake: 1000ml aa1 19:25 Drug: Zofran 4 mg Route: IVP; Site: right antecubital; aa1 20:25 Follow up: Response: No adverse reaction; Marked relief of symptoms aa1 19:27 Drug: morphine 2 mg Route: IVP; Site: right antecubital; aa1 20:27 Follow up: Response: No adverse reaction; Pain is decreased aa1 20:15 Drug: Clindamycin 900 mg Route: IVPB; Infused Over: 30 mins; Site: right antecubital; aa1 20:45 Follow up: IV Status: Completed infusion; IV Intake: 50ml aa1 21:25 Drug: Nicotine 14 mg/24 hr 1 patches Route: Transdermal; Site: affected area; aa1 Intake: 20:25 IV: 1000ml; Total: 1000ml. aa1 20:45 IV: 50ml; Total: 1050ml. aa1 Outcome: 21:30 ER care complete, transfer ordered by MD. bauer 22:03 Transferred by ground EMS to [facility], Transfer form aa1 completed. 22:03 Condition: good 22:03 Discharge instructions given to patient, Instructed on the need for transfer, Demonstrated understanding of instructions. 22:04 Patient left the ED. aa1 Signatures: Dispatcher [employer] EDMS Madison Alvarez RN RN aj1 Theresa Goodwin RN RN aa1 Echo Simms Corey, PA PA cp Wise, Tara, RN RN tw2 Orly Onofre ag6 Corrections: (The following items were deleted from the chart) 20:47 19:30 BP 109 / 83; Pulse 92bpm; Resp 16bpm; Pulse Ox 98% RA; Temp 98.7F; Pain 0/10; aa1 aa1
--- NOTE | 2019-05-31 21:36 | EDPHYS ---
Physician Documentation [facility] Name: Tana Robertson Age: 23 yrs Sex: Female : 1995 Arrival Date: 05/31/2019 Time: 18:14 Bed 8 Private MD: ED Physician Tyler Garcia HPI: 05/31 19:00 This 23 yrs old Female presents to ER via Ambulatory with complaints of cp Facial Swelling, Abscess. 19:00 The patient presents with pain, swelling. The problem is located in the right lower jaw.cp 19:00 Onset: The symptoms/episode began/occurred this morning. Duration: The symptoms are cp continuous, and are steadily getting worse. Associated signs and symptoms: Pertinent positives: pain, Pertinent negatives: dysphagia, fever, inability to eat. 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 - Coronavirus screen:: The patient has NOT traveled to [place], [place], or [place] in the past 14 days. - Social history:: Smoking status: Patient reports the use of cigarette tobacco products, smokes one-half pack cigarettes per day. - Ebola Screening: : Patient denies travel to an Ebola-affected area in the 21 days before illness onset. ROS: 19:05 Constitutional: Negative for body aches, chills, fever. cp 19:05 Eyes: Negative for injury, pain, redness, and discharge. cp 19:05 ENT: Positive for dental pain, Teeth pain right lower jaw swelling. 19:05 Cardiovascular: Negative for chest pain. 19:05 Respiratory: Negative for cough, shortness of breath, wheezing. 19:05 Abdomen/GI: Negative for abdominal pain, vomiting, diarrhea, constipation. 19:05 Skin: Negative for rash. 19:05 Neuro: Negative for altered mental status, headache, weakness. 19:05 All other systems are negative. Exam: 19:10 Constitutional: The patient appears in no acute distress, alert, awake, non-toxic, well cp developed, well nourished, uncomfortable. 19:10 Head/face: Noted is swelling, that is moderate, of the right jaw, tenderness, that is cp severe, of the right jaw. 19:10 Eyes: Periorbital structures: appear normal, Conjunctiva: normal, no exudate, no injection, Sclera: no appreciated abnormality, Lids and lashes: appear normal, bilaterally. 19:10 ENT: External ear(s): are unremarkable, Ear canal(s): are normal, clear, TM's: bulging, is not appreciated, bilaterally, dullness, bilaterally, erythema, is not appreciated, bilaterally, Nose: is normal, Mouth: Lips: moist, Oral mucosa: pink and intact, moist, Tongue: is normal, drooling, is not appreciated, Posterior pharynx: Airway: no evidence of obstruction, patent, Dental exam: dental caries, that is severe, diffusely, fractured teeth are noted, specifically the lower right first molar (#30), gum swelling, that is moderate, pain, that is severe, specifically in the lower right first molar (#30), lower right second molar (#31) and lower right third molar (#32), Voice: is hoarse. 19:10 Neck: ROM/movement: is normal, is supple, no meningismus, no nuchal rigidity. 19:10 Chest/axilla: Inspection: normal, Palpation: is normal, no crepitus, no tenderness. 19:10 Cardiovascular: Rate: normal, Rhythm: regular. 19:10 Respiratory: the patient does not display signs of respiratory distress, Respirations: normal, no use of accessory muscles, labored breathing, is not present, Breath sounds: are clear throughout, no decreased breath sounds, no stridor, no wheezing. 19:10 Abdomen/GI: Exam negative for discomfort, distension, guarding, Inspection: abdomen appears normal. 19:10 Skin: no rash present. 19:10 Neuro: Orientation: to person, place \T\ time. Mentation: is normal, Cerebellar function: is grossly normal, Motor: moves all fours, strength is normal, Sensation: is normal. Vital Signs: 18:26 BP 118 / 85; Pulse 99; Resp 18; Temp 98.5; Pulse Ox 98% on R/A; Height 5 ft. 9 in. aj1 (175.26 cm) (R); Pain 3/10; 19:30 BP 106 / 70; Pulse 92; Resp 18; Pulse Ox 100% on R/A; aa1 20:30 BP 109 / 83; Pulse 92; Resp 16; Temp 98.7; Pulse Ox 98% on R/A; Pain 0/10; aa1 21:39 BP 117 / 81; Pulse 86; Resp 18; Temp 98.6; Pulse Ox 100% on R/A; Pain 0/10; aa1 MDM: 18:51 Patient medically screened. cp 19:00 Differential diagnosis: dental caries, dental abscess, pericoronitis, cp gingivostomatitis, sepsis. 21:30 Physician consultation: was contacted at 21:25, regarding regarding transfer, to [facility]. cp patient's condition, DR Vanessa Barba. 21:31 Data reviewed: vital signs, nurses notes, lab test result(s), radiologic studies, CT cp scan, I have discussed the patient's presentation/case with the attending Emergency Department Physician;. Counseling: I had a detailed discussion with the patient and/or guardian regarding: the historical points, exam findings, and any diagnostic results supporting the discharge/admit diagnosis, lab results, radiology results, the need to transfer to another facility, [facility] does not immediately have the required specialist. Response to treatment: the patient's symptoms have mildly improved after treatment. 05/31 18:54 Order name: CBC with Diff; Complete Time: 20:03 cp 05/31 18:54 Order name: BMP; Complete Time: 20:03 cp 05/31 18:54 Order name: PT-INR; Complete Time: 20:03 cp 05/31 18:54 Order name: CT Soft Tissue Neck W/contr; Complete Time: 20:38 cp 05/31 20:10 Order name: Urine Dipstick--Ancillary (enter results); Complete Time: 20:38 sp 05/31 20:10 Order name: Urine --Ancillary (enter results); Complete Time: 20:38 sp 05/31 18:54 Order name: Urine Dipstick-Ancillary (obtain specimen); Complete Time: 20:08 cp 05/31 18:54 Order name: Urine Test (obtain specimen); Complete Time: 19:36 cp 05/31 18:54 Order name: IV; Complete Time: 19:36 cp 05/31 21:25 Order name: NPO; Complete Time: 21:32 cp Administered Medications: 19: Drug: NS 0.9% 1000 ml Route: IV; Rate: 1 bolus; Site: right antecubital; aa1 20:25 Follow up: IV Status: Completed infusion; IV Intake: 1000ml aa1 : Drug: Zofran 4 mg Route: IVP; Site: right antecubital; aa1 20:25 Follow up: Response: No adverse reaction; Marked relief of symptoms aa1 : Drug: morphine 2 mg Route: IVP; Site: right antecubital; aa1 20:27 Follow up: Response: No adverse reaction; Pain is decreased aa1 20:15 Drug: Clindamycin 900 mg Route: IVPB; Infused Over: 30 mins; Site: right antecubital; aa1 20:45 Follow up: IV Status: Completed infusion; IV Intake: 50ml aa1 : Drug: Nicotine 14 mg/24 hr 1 patches Route: Transdermal; Site: affected area; aa1 Disposition: 21:41 Co-signature as Attending Physician, Tyler Garcia MD I agree with the assessment and [facility] plan of care. 22:05 Chart complete. cp Disposition: 05/31/19 21:30 Transfer ordered to [facility]. Diagnosis are Dental caries, Periapical abscess without sinus - right lower jaw, Right lower jaw odotogenic abscess. - Reason for transfer: Higher level of care. - Accepting physician is DR Vanessa Barba. - Condition is Stable. - Problem is new. - Symptoms have improved. Signatures: Dispatcher [employer] Madison Delatorre RN RN aj1 Theresa Goodwin RN RN aa1 Tyler Garcia MD MD cha Page, Corey, PA PA cp Corrections: (The following items were deleted from the chart) 22:04 21:30 05/31/2019 21:30 Transfer ordered to [facility]. Diagnosis is Dental caries; aa1 Periapical abscess without sinus - right lower jaw; Right lower jaw odotogenic abscess. Reason for transfer: Higher level of care. Accepting physician is DR Vanessa Barba. Condition is Stable. Problem is new. Symptoms have improved. cp
[2019-05-31 22:36] VITALS: BP 117/81; TEMP 98.6; O2SAT 100
== END 2019-05-31 22:04 | disposition short-term general hospital (02) ==
LOC: ER 18:07
DX: K04.7 Periapical abscess without sinus (principal); M27.2 Inflammatory conditions of jaws; K02.9 Dental caries, unspecified; Z88.8 Allergy status to other drugs, medicaments and biological substances; F17.210 Nicotine dependence, cigarettes, uncomplicated
CPT/HCPCS: 36415; 70491; 80048; 81003; 81025; 85025; 85610; 96361; 96365; 96375; 99285; J2270; J2405; J7030; Q9967